=== PATIENT | male | born 1990 | race American Indian/Alaskan Native ===

== ENCOUNTER 2019-10-08 02:12 | Emergency (ER) | payer SELFPAY ==
[2019-10-08 05:13] VITALS: BP 145/77
== END 2019-10-08 05:15 | disposition left against medical advice (07) ==
LOC: ED 02:12
DX: M79.89 Other specified soft tissue disorders (principal); Z53.21 Procedure and treatment not carried out due to patient leaving prior to being seen by health care provider

== ENCOUNTER 2020-06-01 08:00 | Emergency (ER) | payer SELFPAY ==
[2020-06-01 09:24] LABS: Basophils # (Auto) 0.1 K/mm3 (0.0-0.1); Basophils % (Auto) 0.8 % (0.0-1.8); Eosinophils % (Auto) 0.4 % (0.0-4.3); Hematocrit 40.8 % (35.5-45.6); Hemoglobin 13.4 gm/dl (11.8-15.2); Lymphocytes % (Auto) 28.5 % (13.4-35.0); Mean Corpuscular HGB Conc 33 % (32-34); Mean Corpuscular Volume 87 fl (84-94); Monocytes % (Auto) 14.3 % (0.0-7.3); Platelet Count 347 K/mm3 (140-440); Red Cell Distribution Width 13.8 % (13.2-15.2)
[2020-06-01 09:58] LABS: BUN/Creatinine Ratio 25; Blood Urea Nitrogen 32 mg/dL (9-20); Calcium 9.7 mg/dL (8.4-10.2); Hemolysis Index 7
[2020-06-01] MEDS ORDERED: ONDANSETRON 4 MG/2 ML INJ IV ONE (10:08)
[2020-06-01] MEDS ORDERED: SODIUM CHLORIDE 0.9% 1000 ML 1,000 ML IV ONE (10:08)
--- NOTE | 2020-06-01 10:11 | Emergency Department Report ---
ED General Adult HPI - General Chief complaint: Abdominal Pain Stated complaint: STOMACH PAIN Time Seen by Provider: 06/01/20 09:39 Source: patient Mode of arrival: Ambulatory Limitations: No Limitations - History of Present Illness Initial comments: There is a 29-year-old male with past medical history of HIV not on antiretrovirals with his last CD4 count last month which was 800 who presents to the emergency department with chief complaint of generalized abdominal pain that started yesterday. He also reports "I just do not feel good." He reports generalized malaise and a sore throat. He also reports some left-sided arm pain and body aches. He denies any associated fever, chills, night sweats, headache, dizziness, blurry vision, nausea, vomiting, diarrhea, chest pain, shortness of breath, weakness or any other associated symptoms. - Related Data Home Medications Medication Instructions Recorded Confirmed Last Taken Elviteg/Cob/Emtri/Tenofo Disop 1 each PO DAILY 01/08/14 01/08/14 01/07/14 [Stribild Tablet] Previous Rx's Medication Instructions Recorded Last Taken Type HYDROcodone/APAP 5-325 [[place] 1 each PO Q6HR PRN #20 tablet 01/08/14 Unknown Rx 5/325] Mesalamine [Rowasa] 4 gm DC QHS #14 bottle 01/08/14 Unknown Rx Ondansetron [Zofran Odt] 4 mg PO Q8HR #30 tab.rapdis 06/01/20 Unknown Rx Allergies Allergy/AdvReac Type Severity Reaction Status Date / Time Penicillins Allergy Swelling Verified 01/08/14 04:31 ED Review of Systems ROS: Stated complaint: STOMACH PAIN Other details as noted in HPI Comment: All other systems reviewed and negative Constitutional: see HPI, malaise. denies: chills, fever Eyes: denies: eye pain, eye discharge, vision change ENT: as per HPI, throat pain. denies: ear pain Respiratory: denies: cough, shortness of breath, wheezing Cardiovascular: denies: chest pain, palpitations Endocrine: no symptoms reported Gastrointestinal: as per HPI, abdominal pain. denies: nausea, diarrhea Genitourinary: denies: urgency, dysuria Musculoskeletal: as per HPI, myalgia. denies: back pain, joint swelling, arthralgia Skin: denies: rash, lesions Neurological: denies: headache, weakness, paresthesias Psychiatric: denies: anxiety, depression Hematological/Lymphatic: denies: easy bleeding, easy bruising ED Past Medical Hx - Past Medical History Hx HIV: Yes - Social History Smoking Status: Current Some Day Smoker Substance Use Type: None - Medications Home Medications: Home Medications Medication Instructions Recorded Confirmed Last Taken Type Elviteg/Cob/Emtri/Tenofo Disop 1 each PO DAILY 01/08/14 01/08/14 01/07/14 History [Stribild Tablet] HYDROcodone/APAP 5-325 [[place] 1 each PO Q6HR PRN #20 tablet 01/08/14 Unknown Rx 5/325] Mesalamine [Rowasa] 4 gm DC QHS #14 bottle 01/08/14 Unknown Rx Ondansetron [Zofran Odt] 4 mg PO Q8HR #30 tab.rapdis 06/01/20 Unknown Rx ED Physical Exam - General Limitations: No Limitations General appearance: alert, in no apparent distress - Head Head exam: Present: atraumatic, normocephalic - Eye Eye exam: Present: normal appearance, PERRL, EOMI Pupils: Present: normal accommodation - ENT ENT exam: Present: normal exam, mucous membranes moist, TM's normal bilaterally. Absent: normal orophraynx (Mild erythema the posterior pharynx, no peritonsillar bulging, retropharyngeal bulging or tongue elevation. No drooling or dysphonia) - Neck Neck exam: Present: normal inspection. Absent: tenderness, meningismus - Respiratory Respiratory exam: Present: normal lung sounds bilaterally. Absent: respiratory distress, wheezes, rales, rhonchi, stridor - Cardiovascular Cardiovascular Exam: Present: regular rate, normal rhythm, normal heart sounds. Absent: systolic murmur, diastolic murmur, rubs, gallop - GI/Abdominal GI/Abdominal exam: Present: soft, tenderness (Mild left lower quadrant tenderness, negative McBurney's point tenderness, negative Jain sign, no rebound or guarding), normal bowel sounds. Absent: distended, guarding, rebound, rigid, pulsatile mass - Rectal Rectal exam: Present: deferred - Extremities Exam Extremities exam: Present: normal inspection, full ROM, normal capillary refill. Absent: tenderness - Back Exam Back exam: Present: normal inspection, full ROM. Absent: tenderness, CVA tenderness (R), CVA tenderness (L) - Neurological Exam Neurological exam: Present: alert, oriented X3, normal gait - Psychiatric Psychiatric exam: Present: normal affect, normal mood - Skin Skin exam: Present: warm, dry, intact, normal color. Absent: rash ED Course - Reevaluation(s) Reevaluation #1: 06/01/20 12:30 Patient's labs returned with a mildly elevated BUN. He was given IV fluids, nutrition to eat and drink and reports feeling better. Overall his exam is relatively normal. The patient unfortunately is homeless but does have resources for this. We will discharge him home with some nausea medication and outpatient follow-up with primary care. He is instructed to return to the ER with any change or worsening symptoms. Verbalized understanding instructions all his questions were answered. ED Medical Decision Making - Lab Data Result diagrams: 06/01/20 08:41 06/01/20 08:41 Lab Results 06/01/20 06/01/20 Range/Units 08:41 08:41 WBC 7.0 (4.5-11.0) K/mm3 RBC 4.70 (3.65-5.03) M/mm3 Hgb 13.4 (11.8-15.2) gm/dl Hct 40.8 (35.5-45.6) % MCV 87 (84-94) fl MCH 29 (28-32) pg MCHC 33 (32-34) % RDW 13.8 (13.2-15.2) % Plt Count 347 (140-440) K/mm3 Lymph % (Auto) 28.5 (13.4-35.0) % [place] % (Auto) 14.3 H (0.0-7.3) % Eos % (Auto) 0.4 (0.0-4.3) % Baso % (Auto) 0.8 (0.0-1.8) % Lymph # (Auto) 2.0 (1.2-5.4) K/mm3 [place] # (Auto) 1.0 H (0.0-0.8) K/mm3 Eos # (Auto) 0.0 (0.0-0.4) K/mm3 Baso # (Auto) 0.1 (0.0-0.1) K/mm3 Seg Neutrophils % 56.0 (40.0-70.0) % Seg Neutrophils # 3.9 (1.8-7.7) K/mm3 Sodium 133 L (137-145) mmol/L Potassium 4.1 (3.6-5.0) mmol/L Chloride 93.7 L (98-107) mmol/L Carbon Dioxide 27 (22-30) mmol/L Anion Gap 16 mmol/L BUN 32 H (9-20) mg/dL Creatinine 1.3 (0.8-1.3) mg/dL Estimated GFR > 60 ml/min BUN/Creatinine Ratio 25 % Glucose 82 (75-100) mg/dL Calcium 9.7 (8.4-10.2) mg/dL - Differential Diagnosis dehyadration, viral syndrome, enteritis Critical care attestation.: If time is entered above; I have spent that time in minutes in the direct care of this critically ill patient, excluding procedure time. ED Disposition Clinical Impression: Dehydration, Viral pharyngitis Disposition: TO HOME OR SELFCARE Is pt being admited?: No Condition: Stable Instructions: Pharyngitis, [id number] Prescriptions: Ondansetron [Zofran Odt] 4 mg PO Q8HR #30 tab.rapdis Referrals: PRIMARY CAREMD [Primary Care Provider] - 3-5 Days [facility] [Provider Group] - 3-5 Days MARY HINDS MD [Staff Physician] - 3-5 Days Time of Disposition: 12:32
[2020-06-01 16:00] VITALS: BP 122/80
== END 2020-06-01 13:05 | disposition home or self-care (01) ==
LOC: ED 08:00
DX: E86.0 Dehydration (principal); J02.8 Acute pharyngitis due to other specified organisms; Z21 Asymptomatic human immunodeficiency virus [HIV] infection status; F17.200 Nicotine dependence, unspecified, uncomplicated; Z79.899 Other long term (current) drug therapy
CPT/HCPCS: 36415; 80048; 85025; 96361; 96374; 99283; J2405; J7030